=== PATIENT | female | born 1950 | race Caucasian/White ===

== ENCOUNTER → 2016-07-24 | Outpatient (CLI) | payer BC ==
[2016-07-24 14:35] VITALS: BP 134/67
== END ==
LOC: MHUC 12:07
PROVIDERS: ATTEND Physician Assistant
DX: N30.01 Acute cystitis with hematuria (principal)
CPT/HCPCS: 81002; 99213

== ENCOUNTER → 2016-10-01 | Outpatient (REF) | payer BC ==
[~2016-10-01] MED LIST: AC325T PO; ASPI-345 PO; CALC-694 PO; CHOL100045 PO; CLPL625T PO; CYAN100072 PO; ESTR1.25 PO; GEMF600T3 PO; HYDR200T PO; HYDROXYSUT PO; METF500T4 PO; METO50TA7 PO; MTP25TSR PO; MULT1CAP27; NAPR220T76 PO; NF-ACI30T PO; OMG1KC PO; PRAM0.5T2 PO; SULF-221 PO
== END ==
LOC: LAB 12:09
PROVIDERS: ATTEND Internal Medicine
DX: R30.0 Dysuria (principal)
CPT/HCPCS: 87088

== ENCOUNTER 2016-10-20 11:38 | Emergency (ER) | payer BC ==
[~2016-10-20] VITALS: Ht 167.6 cm; Wt 67.0 kg
[2016-10-20] MEDS ORDERED: METO-274 PO (12:08)
[2016-10-20] MEDS ORDERED: ATOR10TA56 PO (12:08)
[2016-10-20] MEDS ORDERED: ESTR2TAB PO (12:08)
[2016-10-20] MEDS ORDERED: CEVI30CA4 PO (12:08)
[2016-10-20] MEDS ORDERED: LSRT50T PO (12:08)
--- NOTE | 2016-10-20 13:16 | Diagnostic Imaging Report ---
PROCEDURE: CT head without contrast. TECHNIQUE: Multiple contiguous axial images were obtained through the brain without the use of intravenous contrast. INDICATION: Fall from a ladder. Head injury. COMPARISON: None. FINDINGS: No acute intracranial hemorrhage, mass effect or edema seen. Morris-white junction is preserved. Ventricles appear normal. No focal abnormality is suspected. The paranasal sinuses and mastoids are clear as visualized. No basilar skull fracture is suspected. There is a left posterior parietal soft tissue hematoma. IMPRESSION: No evidence of an acute intracranial abnormality. There is moderate left posterior parietal soft tissue scalp hematoma. Dictated by: Dictated on workstation # [id number]
[2016-10-20 14:02] VITALS: BP 163/76
== END 2016-10-20 14:00 | disposition home or self-care (01) ==
LOC: ED 11:40
DX: S06.0X9A Concussion with loss of consciousness of unspecified duration, initial encounter (principal); S50.312A Abrasion of left elbow, initial encounter; W11.XXXA Fall on and from ladder, initial encounter; Y93.89 Activity, other specified; Y92.009 Unspecified place in unspecified non-institutional (private) residence as the place of occurrence of the external cause
CPT/HCPCS: 70450; 99282; 99283

== ENCOUNTER → 2016-10-27 | Outpatient (CLI) | payer BC ==
[~2016-10-27] MED LIST changes: +ATOR10TA56 PO; +CEVI30CA4 PO; +ESTR2TAB PO; +LSRT50T PO; +METO-274 PO
[2016-10-27 10:16] VITALS: BP 159/81
--- NOTE | 2016-10-27 10:16 | Urgent Care T Sheet Gen (E) ---
Intake General Temperature (Fahrenheit): 97.8 Pulse: 100 Blood Pressure Systolic: 159 Blood Pressure Diastolic: 81 Respirations: 18 SPO2: 97 Description of Symptoms Patient presents with possible infection to the L elbow. Last week, patient fell off a ladder and suffered a concussion. States she also suffered an abrasion to the L elbow and contusion to the R ankle. States everyone was so concerned with her head injury that her other injuries weren't fully addressed. Her L elbow has started to drain. Remains red and swollen. Ankle is bruised and has a small laceration to the anterior aspect. Wonders if that is infected as well. History of Present Illness Allergies: Coded Allergies: No Known Drug Allergies (Unverified , 10/20/16) Home Meds Reported Medications Losartan Potassium 50 Mg Tablet1 Tab PO DAILY #90 10/20/16 Estradiol 2 Mg Tablet1 Tab PO DAILY #90 10/20/16 Cevimeline HCl 30 Mg Capsule1 Cap PO BID #180 10/20/16 Atorvastatin Calcium 10 Mg Tablet1 Tab PO DAILY #90 10/20/16 Metoprolol Succinate 100 Mg [id number] Mg PO DAILY 10/20/16 Cyanocobalamin (Vitamin B-12) (B-12)1,000 Mcg Tablet.er1,000 Mcg PO DAILY 12/12/12 Cholecalciferol (Vitamin D3) (Vitamin D)1,000 Unit Tablet1,000 Intlu PO DAILY 11/18/11 Aspirin 81 Mg Gcpqkx44 Mg PO DAILY 11/18/11 Metformin HCl 500 Mg [id number] Mg PO TID 11/18/11 Pramipexole Di-HCl (Mirapex)0.5 Mg Tablet0.5 Mg PO BID 11/18/11 Hydroxychloroquine Sulfate 200 Mg [id number] Mg PO DAILY 11/18/11 Discontinued Reported Medications [place] 3 Polyunsat Fatty Acids (Fish Oil)1,000 Mg Cap1,000 Mg PO BID 12/12/12 Calcium Carbonate/Vitamin D3 (Calcium 600 + Vit D Caplet)1 Each [id number] Mg PO BID 11/18/11 Gemfibrozil 600 Mg [id number] Mg PO BID 11/18/11 Estrogens,Conjugated (Premarin)1.25 Mg Tablet1.25 Mg PO DAILY 11/18/11 Rabeprazole Sod (Aciphex)30 Mg Tab20 Mg PO DAILY 11/18/11 Metoprolol Succinate (Toprol XL)50 Mg Tab50 Mg PO DAILY 11/18/11 Discontinued Scripts Sulfamethoxazole/Trimethoprim (Sulfamethoxazole/Trimethoprim DS 800mg/160mg)1 Each Tablet1 Each PO BID #10 TAB Prov:ISAI HOUSER 07/24/16 Acetaminophen 325 Mg [id number] Mg PO Q6H PRN PAIN #0 TAB Ref 0 Prov:GATO BRENNER MD 11/18/14 Respiratory Constitutional Symptoms: No syptoms reported EENTM: No symptoms reported Respiratory: No symptoms reported Cardiovascular: No symptoms reported Skin: Change in color Lesions All Other Systems Reviewed Remaining Systems: All other systems reviewed with negative findings Past Ksegyio-Uyfhcw-Lqeaab Hx Patient's Social History Alcohol Use: Denies Use Smoking Status: Never smoker Recent foreign travel: No Surgeries/Hospitalizations Hospitalization/Surgery Hx: GALLBLADDER, HYSTERECTOMY, APPY, HERNIA x3, bilateral shoulder sx, right elbow,left knee, back surgery, LT BREAST BIOPSY, EGD, COLONOSCOPY, LUMBAR LAMINECTOMY AND FUSION L4-5, RT 5TH TOE, SURGERY TO REPAIR L4 HERNIATION Respiratory Respiratory History: None Cardiovascular Cardiovascular History: Hypertension, Chest Pain, Hypercholesterolemia Neuro/Muscular Neuro/Muscular History: Migraine, Neuropathy, Back Problems, Visual impairment Comment: IN FEET Reproductive System Sexually Transmitted Diseases: No Genitouinary Genitourinary History: None Gastrointestinal GI/Endocrine History: Anemia, Ulcer, GERD Diabetes Diabetes: NIDDM Oral med controlled Onset: 2008 Impaired Vision: Glasses Hearing Impaired: None Integumentary Integumentary History: Other, see comments Comment: ABRASION Cancer History of Cancer?: No Psychosocial Behavior Disorders: None Blood Transfusions Hx of Blood transfusions: No Physical Exam Physical Exam General Appearance: WD/WN No apparent distress Skin Exam: Other (abrasion noted along the posterior L elbow, approx size of a halfdollar. surrounding skin is red and swollen. abrasion does appear infected and there is some purulent drainage from the area. examination of the R ankle reveals bruising which extends from the foot up to the mid-gamez. there is a laceration to the anterior aspect and a hematoma surrounding. skin is blanchable and not warm, doesn't appear infected.) Departure Urgent Care Impression Impression: Primary Impression: Skin infection Additional Impressions: Traumatic ecchymosis of right ankle Qualified Code: S90.01XD - Contusion of right ankle, subsequent encounter Concussion Qualified Code: S06.0X9D - Concussion with loss of consciousness of unspecified duration, subsequent encounter Departure Disposition: 01 HOME OR SELF-CARE Condition: Stable Referrals: JAYSON BRENNAN MD (PCP) Additional Instructions: The patient's elbow does appear infected therefore I have started her on Bactrim. patient states she fell onto dirty concrete. Regarding her ankle, it doesn't appear infected like the elbow, however if there is some infection, the Bactrim will take care of it. It is very swollen and bruised. Quite a big hematoma is noted in the area. It will take some time for the body to reabsorb so the area may look bruised for a while. She still seems a bit disoriented and not quite "herself". Post-concussion symptoms may linger a bit longer. F/U with PCP if headaches develop or if symptoms change. patient reports CT head was normal. Patient understands DC instructions. All questions were answered. Scripts Sulfamethoxazole/Trimethoprim (Sulfamethoxazole/Trimethoprim DS 800mg/160mg)1 Each Tablet1 Each PO BID #14 TAB Prov:ISAI HOUSER 10/27/16 End of report . ISAI HOUSER October 27, 2016 10:16
== END ==
LOC: MHUC 09:51
PROVIDERS: ATTEND Physician Assistant
DX: L08.89 Other specified local infections of the skin and subcutaneous tissue (principal); S90.01XD Contusion of right ankle, subsequent encounter; W11.XXXD Fall on and from ladder, subsequent encounter; S06.0X9D Concussion with loss of consciousness of unspecified duration, subsequent encounter
CPT/HCPCS: 99213